=== PATIENT | male | born 1950 | race Caucasian/White ===

== ENCOUNTER → 2025-05-06 07:36 | Outpatient (REF) | payer MEDICARE, OTHER, SELFPAY | LOC: RAD 07:36 | PROVIDERS: ATTENDING PHYSICIAN Student in an Organized Health Care Education/Training Program | DX: Z00.00 Encounter for general adult medical examination without abnormal findings (principal); E11.9 Type 2 diabetes mellitus without complications; Z87.891 Personal history of nicotine dependence; I10 Essential (primary) hypertension | CPT/HCPCS: 75571; 76770 ==

== ENCOUNTER → 2025-06-17 08:10 | Outpatient (REF) | payer MEDICARE, OTHER, SELFPAY | LOC: HWRCS 08:10 | PROVIDERS: ATTENDING PHYSICIAN Internal Medicine Cardiovascular Disease; FAMILY PHYSICIAN Student in an Organized Health Care Education/Training Program | DX: R07.9 Chest pain, unspecified (principal); R93.1 Abnormal findings on diagnostic imaging of heart and coronary circulation; I45.2 Bifascicular block | CPT/HCPCS: 78452; 93017; A9500 ==

== ENCOUNTER → 2025-07-04 16:02 | Outpatient (REF) | payer MEDICARE, OTHER, SELFPAY | LOC: RCS 16:02 | PROVIDERS: ATTENDING PHYSICIAN Internal Medicine Cardiovascular Disease; FAMILY PHYSICIAN Student in an Organized Health Care Education/Training Program | DX: R07.9 Chest pain, unspecified (principal); I45.2 Bifascicular block | CPT/HCPCS: 93306 ==